=== PATIENT | male | born 1985 | race Two or more races ===

== ENCOUNTER 2018-05-16 13:11 | Emergency (ER) | payer BC ==
[~2018-05-16] VITALS: Ht 188 cm; Wt 104.3 kg
--- NOTE | 2018-05-16 13:25 | NUR ---
BIB BY SELF 32 YEAR OLD MAKE C/O LEFT SIDED FLANK PAIN X 3 DAYS, PATIENT STATED HE HAS HX OF KIDNEY STENT LAST MONTH PLACED IN FAN. ALERT AND OREINTED X4, BREATHING EVEN AND UNLABORED WITH NO DISTRESS NOTED. SKIN WARM TO TOUCH AND INTACT. AWAITING TO BE SEEN BY .
[2018-05-16] MEDS ORDERED: KETOROLAC TROMETHAMINE INJ 30 MG/ML VIAL ONE (13:56)
[2018-05-16 13:59] LABS: BASOPHILS % (AUTO) 0.5 % (0.0-2.0); EOSINOPHILS % (AUTO) 1.5 % (0.0-6.0); HEMATOCRIT 41 % (39-51); HEMOGLOBIN 14.2 g/dL (13.5-17.5); LYMPHOCYTES # (AUTO) 1.4 /CMM (0.8-4.8); LYMPHOCYTES % (AUTO) 19.1 % (20.0-44.0); MEAN CORPUSCULAR HGB CONC 35 g/dl (31.0-36.0); MEAN CORPUSCULAR VOLUME 89 fL (80-96); MONOCYTES # (AUTO) 0.6 /CMM (0.1-1.30); MONOCYTES % (AUTO) 7.9 % (2.0-12.0); NEUTROPHILS # (AUTO) 5.2 /CMM (1.8-8.9); PLATELET COUNT (AUTO) 202 /CMM (150-450); RED BLOOD CELL COUNT(AUTO) 4.56 MIL/uL (4.5-6.0); WHITE BLOOD COUNT (AUTO) 7.3 K/uL (4.3-11.0)
[2018-05-16] MEDS ORDERED: IV NS 0.9% 1,000 ML BAG IV ONE (14:00)
[2018-05-16] MEDS ORDERED: KETOROLAC TROMETHAMINE INJ 30 MG/ML VIAL IV ONE (14:00)
[2018-05-16 14:01] LABS: APPEARANCE,URINE Turbid (CLEAR); BILIRUBIN,URINE SMALL (NEGATIVE); BLOOD, URINE Large Ery/uL (NEGATIVE); KETONES,URINE Trace (NEGATIVE); LEUKOCYTE ESTERASE ,URINE Trace (NEGATIVE); NITRITE, URINE Negative (NEGATIVE); PH,URINE 5.5 (5.0-8.0); PROTEIN,URINE >=300 mg/dl (NEGATIVE); UGLUCOSE 100 MG/DL mg/dL (NEGATIVE); UROBILINOGEN,URINE 0.2 EU/dL (0.2)
[2018-05-16 14:02] LABS: COLOR,URINE Dark Yellow (YELLOW)
--- NOTE | 2018-05-16 14:02 | NUR ---
OIL REFINERY OPERATOR AT BEDSIDE TO TAKE PATIENT FOR CT SCAN
[2018-05-16 14:14] LABS: CALCIUM, SERUM 9.1 mg/dL (8.5-10.1); CREATININE 1.1 mg/dL (0.6-1.3); POTASSIUM 3.9 mmol/L (3.5-5.1)
[2018-05-16 14:18] LABS: BACTERIA,URINE None seen /HPF (None Seen); RBC,URINE 80-100 /HPF (0-2); SQUAMOUS EPITHELIAL CELL,UR Few /HPF (None Seen)
[2018-05-16 14:20] LABS: BILIRUBIN,DIRECT 0.1 mg/dL (0.0-0.2); BILIRUBIN,TOTAL 0.8 mg/dL (0.2-1.0)
[2018-05-16] MEDS ORDERED: HYDROCODONE/APAP 10/325MG 1 EA TABLET PO ONE (14:30)
[2018-05-16] MEDS ORDERED: HYDROCODONE/APAP 10/325MG 1 EA TABLET ONE (14:31)
--- NOTE | 2018-05-16 16:04 | NUR ---
Patient discharged to home in stable condition. Written and verbal after care instructions given. Patient verbalizes understanding of instruction. IV removed. Catheter intact and site benign. Pressure and 4x4 applied to site. No bleeding noted.
[2018-05-16 16:07] VITALS: BP 140/68
== END 2018-05-16 16:08 | disposition home or self-care (01) ==
LOC: ER 13:11
DX: N20.0 Calculus of kidney (principal); K57.92 Diverticulitis of intestine, part unspecified, without perforation or abscess without bleeding; F17.200 Nicotine dependence, unspecified, uncomplicated; Z98.890 Other specified postprocedural states
CPT/HCPCS: 36415; 80048-TC; 80076-TC; 81000-TC; 83690-TC; 85025-TC; 85730-TC; 87086-TC; J1885; J7030